=== PATIENT | female | born 1970 | race African-American/Black ===

== ENCOUNTER 2017-07-21 19:00 | Emergency (ER) | payer OTHER ==
[~2017-07-21] VITALS: Ht 170.2 cm; Wt 84.8 kg
--- NOTE | ~2017-07-21 | EKG ---
[place] [address] [address] [place] [address] ELECTROCARDIOGRAM REPORT Name: PROSPER DIXON [id number] Admission: 07/21/17 Attend Phys: Discharge: 07/21/17 Date of : 70 Report #: [id number] THIS REPORT FOR: //name// [facility] ED Test Date: 2017-07-21 Test Time: 19:06:51 Pat Name: PROSPER MILLER Department: Room: Gender: F Agent Ticketing Gate: [id number] : 1970 Requested By: Jocy Cruz Order Number: [id number] MD: Rodney Gale Measurements Intervals [place] Rate: 83 P: 56 WA: 157 QRS: -20 QRSD: 96 T: 20 QT: 383 QTc: 450 Interpretive Statements Sinus rhythm Probable left atrial enlargement Left ventricular hypertrophy Compared to ECG 10/08/1993 12:20:00 Left ventricular hypertrophy now present Electronically Signed On 07-22-2017 9:11:50 CONTROL ENGINEER by Rodney Gale [email or web address] <ELECTRONICALLY SIGNED> By: Rodney Gale MD, [facility] 07/22/17 0911 05 05 Rodney Gale MD, FAC /EPI
[~2017-07-21 19:00] MED LIST: ZOLOFT100 MG PO
[2017-07-21 19:35] LABS: ABSOLUTE NEUTROPHILS 7.1 thou/uL (1.4-8.2); BASOPHILS 0.9 % (0.0-2.0); HEMATOCRIT 32.2 % (37.0-47.0); HEMOGLOBIN 10.3 gm/dL (12.0-15.0); LYMPHOCYTES 18.7 % (24.0-44.0); MCH 22.5 pg (26.0-34.0); MCV 70.4 fL (80.0-100.0); MONOCYTES 8.4 % (1.0-8.0); PLATELET COUNT 393 thou/uL (150-400); RBC 4.57 mil/uL (4.20-5.00); RDW 19.3 % (10.5-14.5)
[2017-07-21 19:36] LABS: MANUAL DIFF NO
[2017-07-21 19:44] LABS: ANION GAP 7 mmol/L (7-16); BUN 13 mg/dL (7-18); CALCIUM 9.4 mg/dL (8.5-10.1); CHLORIDE 101 mmol/L (98-107); CO2 27 mmol/L (21-32); CREATININE 0.9 mg/dL (0.6-1.0); GLUCOSE 100 mg/dL (74-106); POTASSIUM 4.2 mmol/L (3.5-5.1); SODIUM 135 mmol/L (136-145)
[2017-07-21 19:53] LABS: TROPONIN-I < 0.04 ng/mL (<0.06)
[2017-07-21 20:15] LABS: ANISOCYTOSIS 1+; HYPOCHROMASIA 1+
[2017-07-21 20:16] LABS: MICROCYTES SLIGHT
[2017-07-21] MEDS ORDERED: LISINOPRIL10 MG PO (20:16)
[2017-07-21 20:49] VITALS: BP 159/85
== END 2017-07-21 20:41 | disposition home or self-care (01) ==
LOC: ER 19:00
PROVIDERS: Emergency Medicine
DX: I10 Essential (primary) hypertension (principal); R55 Syncope and collapse; G43.909 Migraine, unspecified, not intractable, without status migrainosus

== ENCOUNTER 2017-09-06 19:07 | Emergency (ER) | payer OTHER ==
[~2017-09-06] VITALS: Ht 172.7 cm; Wt 81.7 kg
[~2017-09-06 19:07] MED LIST changes: +LISINOPRIL10 MG PO
[2017-09-06 20:21] LABS: URINE BILIRUBIN NEGATIVE (Negative); URINE BLOOD 2+ (Negative); URINE CLARITY CLEAR; URINE COLOR YELLOW; URINE GLUCOSE-RANDOM* NEGATIVE (Negative); URINE KETONES NEGATIVE (Negative); URINE LEUKOCYTES-REFLEX NEGATIVE (Negative); URINE NITRITE-REFLEX NEGATIVE (Negative); URINE PROTEIN (DIPSTICK) NEGATIVE (Negative); URINE SPECIFIC GRAVITY 1.015 (1.005-1.035); URINE UROBILINOGEN 0.2 E.U./dl (0.2-1.0)
[2017-09-06 20:33] LABS: CASTS None Seen /LPF (None Seen); CRYSTALS None Seen /LPF (None Seen); MUCUS 0-3 Light strn/LPF (None Seen); SQUAMOUS >10 Many /LPF (0-3); URINE RBC 3-10 Few /HPF (0-2); URINE WBC-REFLEX 6-15 Few /HPF (0-5)
[2017-09-06 20:48] LABS: BASOPHILS 1.6 % (0.0-2.0); EOSINOPHILS 0.9 % (0.0-3.0); HEMATOCRIT 34.2 % (37.0-47.0); HEMOGLOBIN 10.9 gm/dL (12.0-15.0); LYMPHOCYTES 18.9 % (24.0-44.0); MCHC 31.8 g/dL (28.0-37.0); MCV 72.3 fL (80.0-100.0); MONOCYTES 9.2 % (1.0-8.0); PLATELET COUNT 402 thou/uL (150-400); POLYS 69.4 % (36.0-66.0); RBC 4.73 mil/uL (4.20-5.00); RDW 18.9 % (10.5-14.5); WBC 8.7 thou/uL (4.0-11.0)
[2017-09-06 21:01] LABS: CALCIUM 8.9 mg/dL (8.5-10.1); CREATININE 1.1 mg/dL (0.6-1.0); POTASSIUM 4.1 mmol/L (3.5-5.1)
[2017-09-06 21:04] LABS: ALBUMIN 3.2 g/dL (3.4-5.0); TOTAL BILIRUBIN 0.2 mg/dL (<0.1-1.0); TOTAL PROTEIN 7.9 g/dL (6.4-8.2)
[2017-09-06] MEDS ORDERED: ZOFRAN ODT4 M1 PO (21:47)
[2017-09-06] MEDS ORDERED: LOPERAMIDE 2 MG2 M1 PO (21:47)
[2018-03-16] MEDS ORDERED: ZOFRAN ODT8 MG PO ×2 (10:01→10:12)
== END 2017-09-06 22:02 | disposition home or self-care (01) ==
LOC: ER 19:07
PROVIDERS: Emergency Medicine
DX: R11.2 Nausea with vomiting, unspecified (principal); R05 Cough; R19.7 Diarrhea, unspecified; G43.909 Migraine, unspecified, not intractable, without status migrainosus; I10 Essential (primary) hypertension

== ENCOUNTER 2017-10-23 19:08 | Emergency (ER) | payer OTHER ==
[~2017-10-23] VITALS: Ht 170.2 cm; Wt 84.4 kg
[~2017-10-23 19:08] MED LIST changes: +LOPERAMIDE 2 MG2 M1 PO; +ZOFRAN ODT4 M1 PO
[2017-10-23 20:28] LABS: URINE BILIRUBIN NEGATIVE (Negative); URINE BLOOD NEGATIVE (Negative); URINE CLARITY CLEAR; URINE COLOR YELLOW; URINE GLUCOSE-RANDOM* NEGATIVE (Negative); URINE KETONES NEGATIVE (Negative); URINE LEUKOCYTES NEGATIVE (Negative); URINE NITRITE NEGATIVE (Negative); URINE PROTEIN (DIPSTICK) NEGATIVE (Negative); URINE SPECIFIC GRAVITY 1.025 (1.005-1.035); URINE UROBILINOGEN 0.2 E.U./dl (0.2-1.0)
[2017-10-23 20:29] LABS: ABSOLUTE NEUTROPHILS 5.5 thou/uL (1.4-8.2); BASOPHILS 0.7 % (0.0-2.0); EOSINOPHILS 1.5 % (0.0-3.0); HEMATOCRIT 32.7 % (37.0-47.0); HEMOGLOBIN 10.4 gm/dL (12.0-15.0); LYMPHOCYTES 19.5 % (24.0-44.0); MCH 22.9 pg (26.0-34.0); MCHC 31.9 g/dL (28.0-37.0); MCV 71.7 fL (80.0-100.0); MONOCYTES 8.9 % (1.0-8.0); PLATELET COUNT 313 thou/uL (150-400); POLYS 69.4 % (36.0-66.0); RBC 4.56 mil/uL (4.20-5.00); RDW 18.2 % (10.5-14.5); WBC 7.9 thou/uL (4.0-11.0)
[2017-10-23 20:36] LABS: ANION GAP 5 mmol/L (7-16); BUN 11 mg/dL (7-18); CALCIUM 8.7 mg/dL (8.5-10.1); CHLORIDE 104 mmol/L (98-107); CO2 27 mmol/L (21-32); CREATININE 0.7 mg/dL (0.6-1.0); GLUCOSE 97 mg/dL (74-106); POTASSIUM 3.9 mmol/L (3.5-5.1); SODIUM 136 mmol/L (136-145)
[2017-10-23 20:41] LABS: ALBUMIN 2.9 g/dL (3.4-5.0); DIRECT BILIRUBIN < 0.1 mg/dL (<0.1-0.3); LIPASE 109 U/L (73-393); SGOT 39 U/L (15-37); SGPT 38 U/L (30-65); TOTAL BILIRUBIN 0.3 mg/dL (<0.1-1.0); TOTAL PROTEIN 7.1 g/dL (6.4-8.2)
[2017-10-23 21:06] LABS: ANISOCYTOSIS 1+; HYPOCHROMASIA 1+; MICROCYTES 1+
[2017-10-23] MEDS ORDERED: HYDROCODONE-AP1 EAC6 PO (21:29)
[2017-10-23] MEDS ORDERED: CIPROFLOXACIN500 M1 PO (21:33)
[2017-10-23 21:46] VITALS: BP 168/68
== END 2017-10-23 21:51 | disposition home or self-care (01) ==
LOC: ER 19:08
PROVIDERS: Emergency Medicine
DX: R19.7 Diarrhea, unspecified (principal); D64.9 Anemia, unspecified; D25.9 Leiomyoma of uterus, unspecified; G43.909 Migraine, unspecified, not intractable, without status migrainosus; I10 Essential (primary) hypertension

== ENCOUNTER → 2017-11-07 | Outpatient (CLI) | payer OTHER ==
[~2017-11-07] MED LIST changes: +CIPROFLOXACIN500 M1 PO; +HYDROCODONE-AP1 EAC6 PO
== END ==
LOC: RAD 10:05
DX: M47.892 Other spondylosis, cervical region (principal); M40.292 Other kyphosis, cervical region

== ENCOUNTER 2018-04-24 16:30 | Emergency (ER) | payer OTHER ==
[~2018-04-24] VITALS: Ht 165.1 cm; Wt 86.2 kg
[~2018-04-24 16:30] MED LIST changes: +ZOFRAN ODT8 MG PO
[2018-04-24 17:24] LABS: ABSOLUTE NEUTROPHILS 6.5 thou/uL (1.4-8.2); BASOPHILS 0.9 % (0.0-2.0); EOSINOPHILS 1.4 % (0.0-3.0); HEMATOCRIT 35.3 % (37.0-47.0); HEMOGLOBIN 11.7 gm/dL (12.0-15.0); LYMPHOCYTES 17.4 % (24.0-44.0); MCH 24.1 pg (26.0-34.0); MCHC 33.1 g/dL (28.0-37.0); MCV 72.9 fL (80.0-100.0); MONOCYTES 8.7 % (1.0-8.0); PLATELET COUNT 334 thou/uL (150-400); POLYS 71.6 % (36.0-66.0); RBC 4.84 mil/uL (4.20-5.00); RDW 19.7 % (10.5-14.5)
[2018-04-24 17:34] LABS: URINE BILIRUBIN NEGATIVE (Negative); URINE BLOOD NEGATIVE (Negative); URINE CLARITY CLEAR; URINE COLOR YELLOW; URINE GLUCOSE-RANDOM* NEGATIVE (Negative); URINE KETONES NEGATIVE (Negative); URINE LEUKOCYTES NEGATIVE (Negative); URINE NITRITE NEGATIVE (Negative); URINE PROTEIN (DIPSTICK) NEGATIVE (Negative); URINE SPECIFIC GRAVITY <= 1.005 (1.005-1.035); URINE UROBILINOGEN 0.2 E.U./dl (0.2-1.0)
[2018-04-24 17:35] LABS: CALCIUM 9.4 mg/dL (8.5-10.1); CREATININE 0.8 mg/dL (0.6-1.0); POTASSIUM 3.7 mmol/L (3.5-5.1)
[2018-04-24 17:57] LABS: MICROCYTES 1+
[2018-04-24 17:58] LABS: ANISOCYTOSIS 1+; TARGET CELLS OCCASIONAL
[2018-04-24] MEDS ORDERED: PRILOSEC 20 MG20 MG PO (18:47)
[2018-04-24] MEDS ORDERED: ZANTAC 150MG T150 MG PO (18:47)
[2018-04-24 19:03] VITALS: BP 144/71
== END 2018-04-24 19:07 | disposition home or self-care (01) ==
LOC: ER 16:30
PROVIDERS: Physician Assistant
DX: K21.9 Gastro-esophageal reflux disease without esophagitis (principal); I10 Essential (primary) hypertension; G43.909 Migraine, unspecified, not intractable, without status migrainosus

== ENCOUNTER 2018-05-22 18:09 | Emergency (ER) | payer OTHER ==
[~2018-05-22] VITALS: Ht 170.2 cm; Wt 86.2 kg
[~2018-05-22 18:09] MED LIST changes: +PRILOSEC 20 MG20 MG PO; +ZANTAC 150MG T150 MG PO
[2018-05-22 18:55] VITALS: BP 146/62
[2018-05-22] MEDS ORDERED: ELIMITE60 GM TOP (18:55)
== END 2018-05-22 19:00 | disposition home or self-care (01) ==
LOC: ER 18:09
DX: S00.86XA Insect bite (nonvenomous) of other part of head, initial encounter (principal); L29.9 Pruritus, unspecified; W57.XXXA Bitten or stung by nonvenomous insect and other nonvenomous arthropods, initial encounter; Y93.89 Activity, other specified; Y92.89 Other specified places as the place of occurrence of the external cause; Y99.8 Other external cause status

== ENCOUNTER → 2018-08-02 | Outpatient (CLI) | payer OTHER ==
[~2018-08-02] MED LIST changes: +ELIMITE60 GM TOP
== END ==
LOC: RAD 14:53
DX: Z12.31 Encounter for screening mammogram for malignant neoplasm of breast (principal)

== ENCOUNTER → 2020-04-11 | Outpatient (CLI) | payer OTHER | LOC: LAB 08:56 | PROVIDERS: ATTEND Family Medicine | DX: Z20.828 Contact with and (suspected) exposure to other viral communicable diseases (principal) ==

== ENCOUNTER → 2021-03-23 | Outpatient (CLI) | payer OTHER ==
[~2021-03-23] MED LIST changes: +AMLODIPINE BESY10 MG PO; +ASA81BEC PO; +HYDROCODON-ACE1 EAC7 PO; +OMEPRAZOLE 20 M20 M1 PO; +TRAZODONE HCL50 MG PO; +VALIUM10 MG PO
== END ==
LOC: CAT 03-12 08:49
PROVIDERS: ATTEND Family Medicine
DX: R91.1 Solitary pulmonary nodule (principal); R91.8 Other nonspecific abnormal finding of lung field

== ENCOUNTER 2021-03-27 07:34 | Day surgery (SDC) | payer OTHER ==
[~2021-03-27] VITALS: Ht 170.2 cm; Wt 100.2 kg
[~2021-03-27 07:34] MED LIST changes: -HYDROCODON-ACE1 EAC7 PO; -VALIUM10 MG PO
[2021-03-27 08:44] VITALS: BP 140/69
--- NOTE | 2021-03-27 08:50 | EKG ---
[address] [employer] [place] [address] ELECTROCARDIOGRAM REPORT Name: PROSPER LIU Room #: 150-2 [facility]..#: [id number] Admission: 03/27/21 Attend Phys: Ernesto Cho MD Discharge: Date of : 70 Report #: [id number] [facility] Test Date: 2021-03-27 Test Time: 08:24:19 Pat Name: PROSPER LIU Department: Room: 150 2 Gender: F Ccna: FEDER[place] : 1970 Requested By: Ernesto Cho Order Number: [id number] MD: Rodney Gale Measurements Intervals [place] Rate: 75 P: 9 OK: 161 QRS: -17 QRSD: 104 T: -4 QT: 422 QTc: 472 Interpretive Statements Sinus rhythm Left ventricular hypertrophy Nonspecific T wave abnormality Compared to ECG 07/21/2017 19:06:51 T-wave abnormality now present Electronically Signed On 03-27-2021 8:50:38 CDT by Rodney Gale [email or web address] <ELECTRONICALLY SIGNED> By: Rodney Gale MD, [facility] 03/27/2150 3 Rodney Gale MD, FACC /EPI
[2021-03-27] MEDS ORDERED: HYDROCODON-ACE1 EAC7 PO (12:24)
[2021-03-27] MEDS ORDERED: VALIUM10 MG PO (12:25)
[2021-03-27 12:43] VITALS: BP 140/69
--- NOTE | 2021-04-03 12:02 | O ---
[facility] [address] OPERATIVE REPORT Name: PROSPER LIU Room #: DEP [facility].#: [id number] Admission: 03/27/21 Attend Phys: Ernesto Cho MD Discharge: 03/27/21 Date of : 70 Report #: [id number] THIS REPORT FOR: cc: Jose Ramon Pavon James A. DO Chu, Peter Y. MD ~ DATE OF SERVICE: 03/27/2021 PREOPERATIVE DIAGNOSIS: Chronically incarcerated incisional hernia with incarcerated omentum. POSTOPERATIVE DIAGNOSIS: Chronically incarcerated incisional hernia with incarcerated omentum. PROCEDURE PERFORMED: Laparoscopic repair of chronically incarcerated incisional hernia. SURGEON: Ernesto Cho MD ANESTHESIA: General anesthesia. COMPLICATIONS: None. ESTIMATED BLOOD LOSS: 5 mL. DESCRIPTION OF PROCEDURE: With the patient under general anesthesia, abdomen was prepped and draped in sterile fashion. IV antibiotic was administered. A timeout was performed. A 0.25% Marcaine was used to anesthetize the skin. A 2.5 cm incision was made in the right upper quadrant. Incision was carried through the skin and subcutaneous tissue. The anterior rectus fascia was incised and 0 Vicryl suture placed on the fascial edges for retraction. Muscle was spread with a hemostat. Posterior fascia was then grasped with hemostat. This was also opened under visualization. Free intra-abdominal space was identified. An 11 mm balloon trocar was placed through the space. CO2 was placed. Under visualization, there is an incisional hernia with large amount of omentum within it. This is adhesed to the edges. Two 5 mm trocars placed in the right lateral abdomen lateral to the inferior epigastric artery. The omentum was able to be brought out of the hernia sac. Scar tissue and adhesions were divided with cautery. Once the adhesions were divided, the hernia sac is seen in its entirety. The defect is about 4-5 cm in diameter. A 6-inch [place] Ventralight patch with Echo technology and ST was placed. This was brought in through the cutdown site at the balloon trocar site. The trocars were removed and under visualization, the mesh was placed into the abdomen. The balloon trocar was then replaced. Mesh was opened up, oriented with the rough side facing the wall. The insufflator tubing was brought out through the mid part of the hernia sac. The Echo balloon technology on the mesh was inflated. This [facility] [address] [place] [address] OPERATIVE REPORT Name: PROSPER LIU Room #: DEP [facility].R.#: [id number] Admission: 03/27/21 Attend Phys: Ernesto Cho MD Discharge: 03/27/21 Date of : 70 Report #: [id number] stiffened the mesh to be pulled up against the wall. This was positioned with the defect in the middle and the mesh was then tacked with SorbaFix. The mesh was tacked about a centimeter and a half along the edges and then also internally, tacks were placed. After the mesh was tacked in, the balloon was deflated and the Echo balloon was then removed through the 11 mm trocar site. The entire balloon structures were removed. Transfascial suture was then placed at 6, 3, 12, and 9 o'clock position. This was placed with a suture retrieval. A small incision was made. The sutures were brought out through that same small incision, one through the wall and the other end through the mesh. The sutures were tied down. This was started at 6 o'clock and repeated at the 3, 12 and 9 o'clock position. The mesh was well secured. No bleeding was identified. Omentum looks dry also. The trocars were removed. CO2 was evacuated. The cutdown site at the posterior rectus fascia was closed with [id number] 0 PDS x2. Anterior fascia was closed with 0 PDS [id number] x2. Skin at the trocar site of two 5 mm and the cutdown site was closed with 5-0 PDS in interrupted fashion. Dermabond was used to close the transfascial suture site and the incision site. Band-Aid was then applied. The patient tolerated the procedure well. <ELECTRONICALLY SIGNED> By: Ernesto Cho MD 04/03/21 1202 1142 1425 Ernesto Cho MD /nt
== END 2021-03-27 14:30 | disposition home or self-care (01) ==
LOC: OR → TBA 07:35 → OR 11:00
PROVIDERS: ATTEND Surgery
DX: K43.0 Incisional hernia with obstruction, without gangrene (principal); I10 Essential (primary) hypertension; G43.909 Migraine, unspecified, not intractable, without status migrainosus; K21.9 Gastro-esophageal reflux disease without esophagitis; Z98.890 Other specified postprocedural states; Z79.899 Other long term (current) drug therapy; Z90.710 Acquired absence of both cervix and uterus
CPT/HCPCS: 50010; 50101; 50455; 50555; 50687; 50978; 52265; 53065; 53307; 54022; 54118; 56525; 56526; 56530; 57092; 58574; 62110; 62900; 70005